=== PATIENT | male | born 1990 | race African-American/Black ===

== ENCOUNTER 2019-05-15 09:25 | Emergency (ER) | payer SELFPAY ==
[~2019-05-15] VITALS: Ht 182.9 cm; Wt 74.8 kg
[2019-05-15 09:30] VITALS: BP 139/87
[2019-05-15] MEDS ORDERED: IBUPROFEN 600 MG TABLET PO ONE ×2 (09:49→10:00)
--- NOTE | 2019-05-15 09:57 | NUR ---
SEEN BY DR [place]O, MEDICATED ORDERED. 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
--- NOTE | 2019-05-15 10:01 | NUR ---
TALIA PERALTAW WITH PATIENT FOR EVAL
--- NOTE | 2019-05-15 10:04 | NUR ---
SEEN BY TALIA CASPER, Patient given written and verbal discharge instructions. Patient verbalizes understanding of instructions. Refused to sign discharge paperworks but signed waiver form. Patient is ambulatory with steady gait. Refuses offer of group home placement. Patient given list of available shelters in surrounding area. Patient refused food due to dental pain. Per patient he has money for transportation, refused tap card.
--- NOTE | 2019-05-15 10:05 | NUR ---
Social service consult requested by Dr. Edward for dental resources. Pt. is a 29 year old male who came to [facility] complaining of dental pain. SW met with pt. Pt. is alert and oriented x 4. Pt. is homeless, however declined homeless snf placement when offered. Pt. was only interested in getting dental services referral. SW gave him a list of dental clinics from the [facility] resource packet. Pt. was also provided with the following list of homeless snf and homeless resource packet: [facility] at [address] [facility] [address] [facility]. ; [facility] [place], [address] ; [facility] [place], [address], [place] ; [facility] Homeless Resource Directory which includes food stamps, transitional housing, showers and hot meals etc; Mental Health clinics such as [facility] ; [facility] ; Health clinics;[facility] and Alcohol treatment centers such as [facility] [place], ; [facility] and [facility] . Homeless patient form was signed by the pt. and placed in pt's chart.
== END 2019-05-15 10:06 | disposition home or self-care (01) ==
LOC: ER 09:27
DX: K02.9 Dental caries, unspecified (principal); F10.10 Alcohol abuse, uncomplicated; F17.200 Nicotine dependence, unspecified, uncomplicated; Y90.9 Presence of alcohol in blood, level not specified; Z60.2 Problems related to living alone